=== PATIENT | male | born 1990 | race Caucasian/White ===

== ENCOUNTER 2022-03-26 16:21 | Emergency (ER) | payer SELFPAY | END 2022-03-26 19:36 | disposition home or self-care (01) | LOC: JD.ED 16:21 | DX: T14.91XA Suicide attempt, initial encounter (principal); F17.210 Nicotine dependence, cigarettes, uncomplicated; E66.9 Obesity, unspecified; Z68.37 Body mass index [BMI] 37.0-37.9, adult | CPT/HCPCS: 36415; 80306; 80307; 99285 ==